=== PATIENT | male | born 1940 | race African-American/Black ===

== ENCOUNTER 2025-05-18 22:49 | Emergency (ER) | payer MEDICARE, OTHER ==
[~2025-05-18] VITALS: Ht 175.3 cm; Wt 79.4 kg
[2025-05-18 22:54] VITALS: O2SAT 98
[2025-05-19] LABS: BASOPHILS % 0.1 % (0.0-2.0); EOSINOPHILS % 1.2 % (0.0-5.0); HEMATOCRIT. 34.7 % (42.0-52.0); HEMOGLOBIN. 12.0 g/dL (14.0-18.0); LYMPHOCYTES % 26.8 % (20.0-50.0); MEAN PLATELET VOLUME 7.2 fl (7.4-10.4); MONOCYTES % 12.7 % (2.0-8.0); NEUTROPHILS % 59.2 % (40.0-76.0); PLATELET 162 x1000/uL (130-400); RED BLOOD CELL COUNT 3.39 mill/uL (4.7-6.1); RED CELL DISTRIBUTION WIDTH 12.8 % (11.6-14.6)
[2025-05-19 00:16] LABS: CREATININE 1.3 mg/dL (0.6-1.3); UREA NITROGEN BLOOD 28 mg/dL (9-23)
[2025-05-19 00:17] LABS: TROPONIN I HIGH SENSITIVITY < 4 ng/L (3.0-53)
[2025-05-19] MEDS: LEVETIRACETAM 500MG PREMIX 100 ML IV ONE (00:31)
[2025-05-19 02:55] LABS: TROPONIN I HIGH SENSITIVITY < 4 ng/L (3.0-53)
[2025-05-19 03:47] LABS: CLARITY URINE CLOUDY (CLEAR); COLOR URINE YELLOW (YELLOW); GLUCOSE URINE NEGATIVE (NEGATIVE); KETONES URINE TRACE (NEGATIVE); LEUKOCYTE ESTERASE URINE 3+ (NEGATIVE); NITRITE URINE NEGATIVE (NEGATIVE); OCCULT BLOOD URINE 2+ (NEGATIVE); PH URINE 6.0 (4.5-8.0); PROTEIN URINE 1+ (NEGATIVE); SPECIFIC GRAVITY URINE 1.020 (1.005-1.030); UROBILINOGEN URINE 1.0 E.U./dL (0.2-1.0)
[2025-05-19] MEDS: ACETAMINOPHEN 500MG TABLET PO ONE (04:43)
[2025-05-19 06:35] VITALS: TEMP 97.9
[2025-05-19 06:47] VITALS: BP 153/75; PULSE 61; RESP 14; O2SAT 99
[2025-05-19] MEDS ORDERED: LEVO-65 MT (06:57)
[2025-05-19] MEDS ORDERED: LEVOFLOXACIN 250MG TABLET PO ONE (07:00)
[2025-05-19] MEDS: LEVOFLOXACIN 500MG TABLET PO NR (07:20)
[2025-05-19 08:11] LABS: SQUAMOUS EPITHELIAL CELL URINE RARE /lpf (RARE/1+); WBC URINE TNTC /hpf (0-2)
[2025-05-19 08:12] LABS: BACTERIA URINE 3+; RBC URINE 0-2 /hpf (0-2)
== END 2025-05-19 07:22 | disposition home or self-care (01) ==
LOC: ER 22:49 → EDBEDREQ 05-19 06:45 → EDBEDREQTM 05-19 06:45 → ER 05-19 07:22 → CMPBEDREQ 05-19 17:14
DX: R82.90 Unspecified abnormal findings in urine (principal); R56.9 Unspecified convulsions
CPT/HCPCS: 99285; 71045; 80048; 85025; 84484 ×2; 36415 ×2; 93005; 96365; 81003; 87086; 87186; 87077; J1953